=== PATIENT | male | born 1995 | race Caucasian/White ===

== ENCOUNTER → 2016-09-01 | Outpatient (CLI) | payer OTHER ==
--- NOTE | 2016-09-01 11:44 | DX ---
Video Esophagram with Speech Therapy History: 21-year-old male with dysphagia. Sensation of everything sticking. Comparison: None available. Technique: With the patient in the sitting lateral position, the speech therapist administered barium of various consistencies during continual fluoroscopic observation. Findings: There was no aspiration observed. The 13 mm barium tablet passed normally. Fluoroscopy time: 0.6 minutes. Dose= 3 mGy. Impression: Normal video esophagram. Please see speech therapist report and recommendations.
== END ==
PROVIDERS: ATTEND Internal Medicine Gastroenterology
DX: R13.12 Dysphagia, oropharyngeal phase (principal)
CPT/HCPCS: 92611-GN

== ENCOUNTER 2016-09-09 10:43 | Day surgery (SDC) | payer OTHER ==
[2016-09-09] MEDS ORDERED: PROPOFOL/EMULSION 500 MG/50 ML BOTTLE IV ONE (11:39)
[2016-09-09] MEDS ORDERED: MIDAZOLAM 2 MG/2 ML VIAL ONE (11:40)
[2016-09-09] MEDS ORDERED: BOTULINUM TOXIN TYPE A 100 UNIT VIAL MISC ONE (13:00)
--- NOTE | 2016-09-09 13:09 | GPN ---
[f rep st] PROCEDURE NOTE DATE OF PROCEDURE: 09/09/2016 PROCEDURES: Esophagogastroduodenoscopy with [id number] balloon dilation and esophageal inject ion of botulinum toxin. INDICATION: Achalasia. ANESTHESIOLOGIST: Dr. Alexis Reese MEDICATION: Propofol per Anesthesia. COMPLICATIONS: None. ESTIMATED BLOOD LOSS: Minimal. DESCRIPTION OF PROCEDURE: Consent was obtained from Mr. Culver after the risks and benefits of endos copy, needle injection of botulinum toxin into the lower esophageal sphincter, and TTS balloon dilati on were discussed in detail. All risks were discussed and informed consent was obtained. Mr. Culver is competent to make his own medical decisions. Of note, his mother was also present at the bedside , who had questions answered before consent was obtained. Procedure monitoring was continuous per an esthesiology protocol. Mr. Culver was placed into the left lateral decubitus position with the head of the bed at 30 degrees . Propofol was administered. He was comfortable, and then the esophagus was intubated under direct visualization. The posterior pharynx was clear, but the esophagus was markedly fluid-filled and dila lani. There was also residual food debris within the esophagus. All of the residual material was asp irated easily and quickly through the endoscope. The esophagus was then clear. It was visualized th at the esophagus was dilated markedly throughout its entirety until the lower esophageal sphincter ar ea, which was markedly tight and tapered. There was resistance to passage of the endoscope at the LE S that was moderate. With forward traction, the endoscope was ultimately able to be advanced into th e stomach. There was a 1 cm gastric nodule within the antrum that appeared submucosal and had been s ampled on his previous EGD. This was not resampled today. A retroflexed view of the gastric cardia revealed a tight lower esophageal sphincter, but no evidence of mass or cancer at the GE junction or at the cardia. The pylorus was patent and the duodenum was normal to the second portion. THERAPEUTIC INTERVENTION: The stomach was decompressed. The esophagus was entered. The scleral nee dle with 100 units of Botox was utilized to inject in 4 quadrants at the lower esophageal sphincter i n an antegrade fashion. These injections were approximately at 12 o'clock, 3 o'clock, 6 o'clock, and 9 o'clock. 1 mL of fluid was utilized for each injection containing 25 units of Botox. The needle was removed. The 18 mm TTS balloon was then advanced through the endoscope into the LES and was inflated on 2 sepa rate occasions to 1 minute each at 18 mm. This was utilized to dilate the lower esophageal sphincter and to distribute the Botox medicine evenly through the LES. The balloon was removed and the stomac h decompressed. Of note, there was much less resistance at the lower esophageal sphincter after inje ction and dilation than initial. There was still a tapered appearance to the LES and the esophagus w as still dilated. All residual fluid was aspirated out of the esophagus and the procedure completed. The patient tolerated the procedure well. IMPRESSION: 1. Fluid-filled and dilated esophagus with a tapered lower esophageal sphincter with high resistance to passage of the endoscope consistent with achalasia. 2. All fluid was aspirated out of the esophagus. 3. Gastric antral nodule submucosal and not sampled. 4. Normal duodenum to the second portion. 5. Therapeutic treatment of his achalasia with 100 units of Botox (25 units into each of 4 quadrants at the LES in antegrade fashion.). 6. The lower esophagus was also dilated with a [id number] balloon to treat achalasia. RECOMMENDATIONS: 1. Soft mechanical diet of low-residue. 2. Small frequent meals. 3. Avoid eating 3 hours before bed. 4. Nexium 40 mg once daily. 5. If he has no response to botulinum toxin injection, then a pneumatic balloon dilation will be per formed. 6. 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 /[id number]/MODL
== END 2016-09-09 13:30 | disposition home or self-care (01) ==
LOC: FSGY 10:43
PROVIDERS: ATTEND Internal Medicine Gastroenterology
DX: K22.0 Achalasia of cardia (principal); R13.10 Dysphagia, unspecified
CPT/HCPCS: 43233; 64999; C1726; J0585; J2250; J2704